=== PATIENT | male | born 1980 | race Two or more races ===

== ENCOUNTER 2021-05-26 06:58 | Emergency (ER) | payer OTHER ==
[~2021-05-26] VITALS: Ht 172.7 cm; Wt 56.7 kg
[~2021-05-26 06:58] MED LIST: ALLEGRA-D1 TAB.SR1; SUDAFED30 MG
[2021-05-26] MEDS ORDERED: NORFLEX100MG PO (11:53)
[2021-05-26] MEDS ORDERED: KETO10TA2 PO (11:53)
== END 2021-05-26 11:58 | disposition home or self-care (01) ==
LOC: ER 06:58
DX: S01.81XA Laceration without foreign body of other part of head, initial encounter (principal); W01.0XXA Fall on same level from slipping, tripping and stumbling without subsequent striking against object, initial encounter; Y93.02 Activity, running; Y92.095 Swimming-pool of other non-institutional residence as the place of occurrence of the external cause; Y99.8 Other external cause status

== ENCOUNTER 2025-06-17 21:53 | Emergency (ER) | payer OTHER ==
[~2025-06-17] VITALS: Ht 170.2 cm; Wt 58.5 kg
[~2025-06-17 21:53] MED LIST changes: +KETO10TA2 PO; +NORFLEX100MG PO
[2025-06-17] MEDS ORDERED: TRUVADA 100 MG1 EACH PO (21:58)
[2025-06-18] MEDS ORDERED: KETOROLAC TROMETHAMINE 60 MG VIAL IM ONE ×2 (00:08→00:15)
[2025-06-18] MEDS ORDERED: TRAMADOL HCL 50 MG TABLET PO ONE (00:15)
[2025-06-18 00:18] LABS: BASO % 0.4 % (0.1-1.2); EOS % 2.0 % (0.7-7.0); LYMPH % 26.9 % (19.3-53.1); MEAN PLATELET VOLUME 9.60 fl (9.4-12.4); MONO % 10.2 % (4.7-12.5); NEUT % 60.4 % (34.0-71.1); RED CELL DISTRIBUTION WIDTH 10.9 % (11.6-14.4)
[2025-06-18 00:20] LABS: EOS # 0.16 (0.04-0.54); LYMPH # 2.14 (1.18-3.74); MONO # 0.81 (0.24-0.82); NEUT # 4.80 (1.56-6.13)
[2025-06-18 00:41] LABS: ALT/SGPT 28.0 U/L (12-78); AST/SGOT 19.0 U/L (15-37); BILIRUBIN TOTAL 0.43 mg/dL (0.3-1.2); BUN CREA RATIO 15.0 (7.0-25.0); CREATININE SERUM 0.86 mg/dL (0.70-1.30); GFR 96.6; GLOBULINA 4.4 G/DL (2.4-3.5); GLUCOSE FASTING 94.0 mg/dL (65-100); OSMOLALITY SERUM 285.0 MOSM/KG (275-295)
[2025-06-18 01:38] LABS: COVID-19 AG NEGATIVE (NEGATIVE)
[2025-06-18] MEDS ORDERED: DOLOGESIC-DF 51 EACH PO (03:36)
== END 2025-06-18 04:12 ==
LOC: ER 21:53
PROVIDERS: Preventive Medicine Public Health & General Preventive Medicine
DX: B34.9 Viral infection, unspecified (principal); Z20.822 Contact with and (suspected) exposure to COVID-19; Z91.048 Other nonmedicinal substance allergy status